=== PATIENT | female | born 1955 | race Caucasian/White ===

== ENCOUNTER 2017-05-02 04:34 | Inpatient (IN) | payer OTHER ==
[~2017-05-02] VITALS: Ht 162.6 cm; Wt 88.5 kg
[2017-05-02] VITALS (9 sets, daily range): BP systolic 100–113; BP diastolic 56–71; PULSE 40–51; TEMP 36.4–36.7; O2SAT 96–100; Ht 162.6 cm; Wt 88.5 kg
[~2017-05-02 04:34] MED LIST: ALBUAER19 INH; EPP3/2 IM; ESTR0.5T3 PO; TRAM-10 PO
[2017-05-02] MEDS ORDERED: SODIUM CHLORIDE 0.9% 1000ML 1,000 ML IV STA (04:52)
[2017-05-02] MEDS ORDERED: CHOL1CHW10 PO ×2 (05:01)
[2017-05-02] MEDS ORDERED: ASPI81TA28 PO ×2 (05:01)
[2017-05-02] MEDS ORDERED: MULT-1092 PO ×2 (05:01)
[2017-05-02] MEDS ORDERED: POTA99TA PO ×2 (05:01)
[2017-05-02] MEDS ORDERED: LISI-461 PO ×2 (05:01)
[2017-05-02] MEDS ORDERED: VNTHFA/IN INH ×2 (05:01)
[2017-05-02] MEDS ORDERED: HYDR25TA4 PO ×2 (05:01)
[2017-05-02 05:11] LABS: BASO % 0.2 %; BASO ABS # 0.02 K/uL (0-0.2); EOS % 1.3 %; EOS ABS # 0.13 K/uL (0-0.5); HEMATOCRIT 39.5 % (37-47); HEMOGLOBIN 13.2 g/dL (12.0-16.0); IG# 0.02 K/uL (0.00-0.02); LYMPH % 21.3 %; LYMPH ABS # 2.18 K/uL (1.2-3.4); MEAN CELL VOLUME 88.8 fL (80-100); MEAN CORPUSCULAR HEMOGLOBIN 29.7 pg (25-34); MEAN CORPUSCULAR HGB CONC 33.4 g/dl (32-36); MONO % 7.1 %; MONO ABS # 0.73 K/uL (0.11-0.59); NEUT % 69.9 %; NEUT ABS # 7.16 K/uL (1.4-6.5); PLATELET COUNT 181 K/uL (130-400); RED CELL DISTRIBUTION WIDTH CV 14.4 % (11.5-14.5); RED CELL DISTRIBUTION WIDTH SD 47.5 fL (36.4-46.3); WHITE BLOOD COUNT 10.24 K/uL (4.8-10.8)
[2017-05-02 05:22] LABS: INR 0.9 (0.9-1.1)
[2017-05-02 05:29] LABS: ALBUMIN 3.8 gm/dl (3.4-5.0); CREATININE 0.74 mg/dl (0.60-1.20); POTASSIUM 3.5 mmol/L (3.5-5.1)
[2017-05-02 05:32] LABS: TOTAL PROTEIN 7.4 gm/dl (6.4-8.2)
--- NOTE | 2017-05-02 05:47 | EMERGENCY ROOM VISIT NOTE ---
History Report prepared by Anupam: Irwin Mejia Under the Supervision of: Dr. Zoë Mckinley D.O. First contact with patient: 04:37 Chief Complaint: ABDOMINAL PAIN Stated Complaint: ABDOMINAL PAIN History of Present Illness The patient is a 61 year old female who presents to the Emergency Room by EMS with complaints of RLQ abdominal pain beginning two days ago. She states that her symptoms began with pain and hot flashes while she was driving. Her pain was initially intermittent, but has become constant recently. The patient's pain wraps around to her back. She also complains of chills. She denies any diarrhea, cough, constipation, urinary symptoms, nausea, or fevers. The patient has been able to pass gas. She has a history of complete hysterectomy, gastric bypass, GI ulcers and GERD. She notes she has a history of anxiety attacks. The patient denies recent medication changes, or travel. Source of History: patient Onset: Two days ago Position: abdomen (RLQ) Timing: constant (now), intermittent (initially) Associated Symptoms: + chills, + back pain, No fevers, No cough, No nausea, No diarrhea, No urinary symptoms Note: The patient denies constipation. Review of Systems See HPI for pertinent positives & negatives. A total of 10 systems reviewed and were otherwise negative. Past Medical & Surgical Medical Problems: (1) Asthma (2) Bronchitis (3) Diabetes mellitus, type II (4) GERD (gastroesophageal reflux disease) (5) Hypertension (6) Pneumonia Surgical Problems: (1) H/O gastric bypass (2) S/P complete hysterectomy (3) S/P hysterectomy (4) Status post bilateral knee replacements Social History Problems: (1) Emphysema lung Family History Cancer Diabetes mellitus Heart disease Hypertension Social History Smoking Status: Never Smoker Drug Use: none Marital Status: single Housing Status: lives with friends Occupation Status: employed Current/Historical Medications Scheduled Aspirin (Aspirin Ec), 81 MG PO QAM Cholecalciferol (Vitamin D3), 500 MG PO DAILY Ciprofloxacin Hcl (Cipro), 500 MG PO BID Estradiol (Estradiol), 0.5 MG PO QAM Hydrochlorothiazide (Hctz), 25 MG PO QAM Lisinopril (Lisinopril), 10 MG PO QAM Multiple Vitamins W/ Minerals (Centrum Silver 50+Women), 1 TAB PO DAILY Omeprazole (Prilosec), 40 MG PO QAM Potassium (Potassium), Unknown Dose PO DAILY Scheduled PRN Albuterol Hfa (Ventolin Hfa), 2 PUFFS INH QID PRN for Shortness of Breath Epinephrine (Epipen), 0.3 MG IM UD PRN for Allergic Reaction Allergies Coded Allergies: BEE STING (Verified Allergy, Severe, ANAPHYLAXIS, 05/04/17) HAS EPIPEN TO USE IF NEEDED Penicillins (Verified Allergy, Severe, THROAT SWELLS, 05/04/17) Morphine (Verified Allergy, Mild, PO ONLY (IV OKAY, PER PATIENT), 05/04/17) PER PT, THROAT SWELLS WITH PO MORPHINE, BUT SHE IS OKAY WITH IV MORPHINE Physical Exam Vital Signs Date Time Temp Pulse Resp B/P (MAP) Pulse Ox O2 Delivery O2 Flow Rate FiO2 05/02/17 08:30 97 Room Air 05/02/17 07:51 43 05/02/17 07:40 48 16 125/68 97 05/02/17 06:36 48 20 117/56 96 Room Air 05/02/17 05:16 78 20 111/57 97 Room Air 05/02/17 04:36 36.6 67 22 160/62 93 Room Air Physical Exam GENERAL: alert, well appearing, well nourished, no distress, non-toxic EYE EXAM: normal conjunctiva, PERRL and EOM's grossly intact OROPHARYNX: no exudate, no erythema, lips, buccal mucosa, and tongue normal and mucous membranes are moist NECK: supple, no nuchal rigidity, no adenopathy, non-tender LUNGS: Clear to auscultation. Normal chest wall mechanics HEART: no murmurs, S1 normal and S2 normal ABDOMEN: abdomen soft, normo-active bowel sounds, no masses, no rebound or guarding. RLQ tenderness to palpation. BACK: Back is symmetrical on inspection and there is no deformity, no midline tenderness, no CVA tenderness. SKIN: no rashes and no bruising UPPER EXTREMITIES: upper extremities are grossly normal. LOWER EXTREMITIES: No pitting edema. NEURO EXAM: Normal sensorium, cranial nerves II-XII grossly intact, normal speech, no gross weakness of arms, no gross weakness of legs. Medical Decision & Procedures ER Provider Diagnostic Interpretation: CT OF THE ABDOMEN AND PELVIS WITH CONTRAST CLINICAL HISTORY: Right lower quadrant abdominal pain. COMPARISON STUDY: None. TECHNIQUE: Following IV administration of 92 mL of Optiray-320, axial images of the abdomen and pelvis were obtained from the lung bases to the proximal femurs. Images were reviewed in the axial, sagittal, and coronal planes. IV contrast was administered without complication. A dose lowering technique was utilized adhering to the principles of ALARA. Oral contrast was administered. CT DOSE: 686.94 mGy.cm FINDINGS: A 1 cm x 0.9 cm right ureteropelvic junction calculus results in moderate right hydronephrosis with moderate perinephric infiltration. The right nephrogram is delayed due to the obstruction. No additional ureteral calculi are identified. The liver, spleen, adrenal glands and pancreas are unremarkable. There is no biliary or pancreatic ductal dilatation. The gallbladder is mildly distended without pericholecystic infiltration. The patient is status post gastric bypass. There is no evidence for a bowel obstruction. There is no lymphadenopathy. The appendix is not visualized but there is no right lower quadrant measuring. No suspicious osseous lesions are present. There is moderate atherosclerotic plaque. IMPRESSION: 10 mm x 9 mm right ureteropelvic junction calculus which results in moderate right hydronephrosis with perinephric infiltration. Delayed right nephrogram due to the obstruction. Electronically signed by: Ever Douglas M.D. 05/02/2017 7:52 AM Dictated Date/Time: 05/02/2017 7:37 AM Laboratory Results Test 05/02/17 04:15 05/02/17 04:40 05/02/17 05:07 Immature Granulocyte % (Auto) 0.2 % White Blood Count 10.24 K/uL (4.8-10.8) Red Blood Count 4.45 M/uL (4.2-5.4) Hemoglobin 13.2 g/dL (12.0-16.0) Hematocrit 39.5 % (37-47) Mean Corpuscular Volume 88.8 fL (80-100) Mean Corpuscular Hemoglobin 29.7 pg (25-34) Mean Corpuscular Hemoglobin Concent 33.4 g/dl (32-36) Platelet Count 181 K/uL (130-400) Mean Platelet Volume 13.0 fL (7.4-10.4) Neutrophils (%) (Auto) 69.9 % Lymphocytes (%) (Auto) 21.3 % Monocytes (%) (Auto) 7.1 % Eosinophils (%) (Auto) 1.3 % Basophils (%) (Auto) 0.2 % Neutrophils # (Auto) 7.16 K/uL (1.4-6.5) Lymphocytes # (Auto) 2.18 K/uL (1.2-3.4) Monocytes # (Auto) 0.73 K/uL (0.11-0.59) Eosinophils # (Auto) 0.13 K/uL (0-0.5) Basophils # (Auto) 0.02 K/uL (0-0.2) Immature Granulocyte # (Auto) 0.02 K/uL (0.00-0.02) Total Bilirubin 0.4 mg/dl (0.2-1) Aspartate Amino Transf (AST/SGOT) 17 U/L (15-37) Alanine Aminotransferase (ALT/SGPT) 25 U/L (12-78) Alkaline Phosphatase 71 U/L (45-117) Total Protein 7.4 gm/dl (6.4-8.2) Albumin 3.8 gm/dl (3.4-5.0) Globulin 3.6 gm/dl (2.5-4.0) Albumin/Globulin Ratio 1.1 (0.9-2) Lipase 192 U/L (73-393) Urine Color DK YELLOW Urine Appearance CLOUDY (CLEAR) Urine pH 5.0 (4.5-7.5) Urine Specific [place] 1.030 (1.000-1.030) Urine Protein 1+ (NEG) Urine Glucose (UA) NEG (NEG) Urine Ketones TRACE (NEG) Urine Occult Blood 3+ (NEG) Urine Nitrite NEG (NEG) Urine Bilirubin NEG (NEG) Urine Urobilinogen NEG (NEG) Urine Leukocyte Esterase TRACE (NEG) Urine WBC (Auto) 1-5 /hpf (0-5) Urine RBC (Auto) >30 /hpf (0-4) Urine Hyaline Casts (Auto) 1-5 /lpf (0-5) Urine Epithelial Cells (Auto) >30 /lpf (0-5) Urine Bacteria (Auto) 1+ (NEG) Urine Crystals CALCIUM OXALATE (NONE Lactic Acid Level 1.1 mmol/L (0.4-2.0) Date/Time Source Procedure Growth Status 05/02/17 04:40 Urine , Clean Catch Urine Culture - Final Escherichia Coli Lactobacillus Species Complete Laboratory results per my review. Medications Administered Medications (Trade) Dose Ordered Sig/Gerald Route Start Time Stop Time Status Last Admin Dose Admin Sodium Chloride 1,000 ml @ 125 mls/hr Q8H STAT IV 05/02/17 04:52 05/02/17 10:26 DC 05/02/17 04:52 125 MLS/HR Acetaminophen 100 ml @ 400 mls/hr NOW STAT IV 05/02/17 05:58 05/02/17 06:12 DC 05/02/17 06:07 400 MLS/HR ECG Indication: abdominal pain Rate (beats per minute): 49 Rhythm: sinus bradycardia Findings: no acute ischemic change, other (Normal axis. Normal intervals. ) ED Course 0445: The patient was evaluated in room A3. A complete history and physical exam was performed. 0755: Patient states no current pain at this time. Updated on all results. 0801: Pt updated on results. Urology paged. Medical Decision Differential diagnosis: Etiologies such as appendicitis, diverticulitis, PUD, biliary pathology, UTI, pancreatitis, obstruction, mesenteric ischemia, aortic pathology, infections, inflammatory bowel disease, renal colic, as well as others were entertained. Patient well-appearing here despite findings on CT. No evidence of acute renal dysfunction, no evidence of bacteremia/sepsis, no evidence of pyelonephritis. Patient will be admitted for additional pain control and urology evaluation. Patient aware of all results and was agreeable with plan. Medication Reconcilliation Current Medication List: was personally reviewed by me Blood Pressure Screening Patient's blood pressure: Normal blood pressure Blood pressure disposition: Did not require urgent referral Consults Time Called: 0800 Consulting Physician: Sonny villagomez Returned Call: 0815 Discussed with Nila Neff, will evaluate. Awaiting call back from urology. Additional Consults: Time Called: 0805 Consulted Physician: Dr. Russell Returned Call: 0815 Additional Comments: Discussed case. Advised medicine should admit and he will see in consult. No additional orders. Impression Primary Impression: Ureterolithiasis Additional Impressions: Hematuria Abdominal pain Scribe Attestation The scribe's documentation has been prepared under my direction and personally reviewed by me in its entirety. I confirm that the note above accurately reflects all work, treatment, procedures, and medical decision making performed by me. Departure Information Prescriptions Ciprofloxacin Hcl (CIPRO) 500 Mg Tab 500 MG PO BID for 3 Days, #6 TAB Prov: Chandler Medina MD 05/03/17 Referrals Warern Flor D.O. (PCP) Patient Instructions [facility] Problem Qualifiers Additional Impressions: Hematuria Hematuria type: unspecified type Qualified Codes: R31.9 - Hematuria, unspecified Abdominal pain Abdominal location: right lower quadrant Qualified Codes: R10.31 - Right lower quadrant pain
[2017-05-02] MEDS ORDERED: ACETAMINOPHEN IV 100 ML IV STA (05:58)
[2017-05-02] MEDS ORDERED: OPTIRAY 320 IV PRN (06:30)
--- NOTE | 2017-05-02 07:54 | DIAGNOSTIC IMAGING REPORT ---
CT OF THE ABDOMEN AND PELVIS WITH CONTRAST CLINICAL HISTORY: Right lower quadrant abdominal pain. COMPARISON STUDY: None. TECHNIQUE: Following IV administration of 92 mL of Optiray-320, axial images of the abdomen and pelvis were obtained from the lung bases to the proximal femurs. Images were reviewed in the axial, sagittal, and coronal planes. IV contrast was administered without complication. A dose lowering technique was utilized adhering to the principles of ALARA. Oral contrast was administered. CT DOSE: 686.94 mGy.cm FINDINGS: A 1 cm x 0.9 cm right ureteropelvic junction calculus results in moderate right hydronephrosis with moderate perinephric infiltration. The right nephrogram is delayed due to the obstruction. No additional ureteral calculi are identified. The liver, spleen, adrenal glands and pancreas are unremarkable. There is no biliary or pancreatic ductal dilatation. The gallbladder is mildly distended without pericholecystic infiltration. The patient is status post gastric bypass. There is no evidence for a bowel obstruction. There is no lymphadenopathy. The appendix is not visualized but there is no right lower quadrant measuring. No suspicious osseous lesions are present. There is moderate atherosclerotic plaque. IMPRESSION: 10 mm x 9 mm right ureteropelvic junction calculus which results in moderate right hydronephrosis with perinephric infiltration. Delayed right nephrogram due to the obstruction. Electronically signed by: Ever Douglas M.D. 05/02/2017 7:52 AM Dictated Date/Time: 05/02/2017 7:37 AM
[2017-05-02] MEDS ORDERED: ONDANSETRON INJ 2 MG/ML 2 ML VIAL IV PRN ×2 (08:30→09:15)
[2017-05-02] MEDS ORDERED: HYDROmorphone INJ 1 MG/ML SYR IV PRN (08:30)
--- NOTE | 2017-05-02 08:30 | NUR ---
A/ID: 61 year old female in ED. c/o abdominal pain. CT abdomen report: 10 mm x 9 mm right ureteropelvic junction calculus. Possible admission/observation. Admission Assessment done. Code Word/Fall Agreement reviewed with patient and completed. Continued care in ED by MIGUE Palmer.
[2017-05-02] MEDS ORDERED: HYDROmorphone INJ 0.5 MG/0.5 ML SYR IV PRN (09:15)
[2017-05-02] MEDS ORDERED: ACETAMINOPHEN IV 1,000 MG in EMPTY BAG 0 ML IV PRN (09:15)
[2017-05-02] MEDS ORDERED: ACETAMINOPHEN IV 1000MG/100ML IV PRN (09:30)
--- NOTE | 2017-05-02 09:32 | History and Physical ---
History & Physical Date & Time of Service: May 02, 2017 at 09:18 Chief Complaint: Abdominal Pain Primary Care Physician: Warren Flor D.O. History of Present Illness Source: patient, hospital records This is a 61yo F with a PMH of HTN, GERD, asthma and h/o gastric bypass who presents with worsening abdominal pain x 2 days. Patient was in normal state of health on Monday until she experienced sudden sharp RLQ pain with associated subjective fever and chills. Pain continued the next day but did not worsen until last night around midnight, when it became a constant, 10/10 pinching pain in her RLQ with radiation to her right flank. Associated with nausea and dark urine with a strong odor. Denies history of kidney stones. Is urinating a usual amount. Was brought to ED via EMS for further evaluation. Denies fever, chills, lightheadedness, chest pain, SOB, vomiting, dysuria, hematuria, diarrhea or constipation. Was given IV tylenol and dilaudid in ED with complete pain relief. Past Medical/Surgical History Medical Problems: (1) Asthma Status: Chronic (2) Bronchitis Status: Resolved (3) Diabetes mellitus, type II Status: Chronic (4) GERD (gastroesophageal reflux disease) Status: Chronic (5) Hypertension Status: Chronic (6) Pneumonia Status: Resolved Surgical Problems: (1) H/O gastric bypass Status: Resolved (2) S/P complete hysterectomy Status: Resolved (3) S/P hysterectomy Status: Resolved (4) Status post bilateral knee replacements Status: Resolved Social History Problems: (1) Emphysema lung Status: Chronic Family History Cancer Diabetes mellitus Heart disease Hypertension Social History Smoking Status: Former Smoker Alcohol Use: none Drug Use: none Marital Status: single Housing status: lives with roommate Occupational Status: employed Immunizations History of Influenza Vaccine: Yes Influenza Vaccine Date: Jul 05, 2008 History of Tetanus Vaccine?: Yes History of Pneumococcal: Yes History of Hepatitis B Vaccine: Yes Multi-Drug Resistant Organisms History of MDRO: No Allergies Coded Allergies: BEE STING (Verified Allergy, Severe, ANAPHYLAXIS, 05/02/17) HAS EPIPEN TO USE IF NEEDED Penicillins (Verified Allergy, Severe, THROAT SWELLS, 05/02/17) Morphine (Verified Allergy, Mild, PO ONLY (IV OKAY, PER PATIENT), 05/02/17) PER PT, THROAT SWELLS WITH PO MORPHINE, BUT SHE IS OKAY WITH IV MORPHINE Home Medications Scheduled Aspirin (Aspirin Ec), 81 MG PO DAILY Cholecalciferol (Vitamin D3), Unknown Dose PO DAILY Estradiol (Estradiol), 0.5 MG PO DAILY Hydrochlorothiazide (Hctz), 25 MG PO DAILY Lisinopril (Lisinopril), 10 MG PO DAILY Multiple Vitamins W/ Minerals (Centrum Silver 50+Women), 1 TAB PO DAILY Omeprazole (Prilosec), 40 MG PO DAILY Potassium (Potassium), Unknown Dose PO DAILY Scheduled PRN Albuterol Hfa (Ventolin Hfa), 2 PUFFS INH QID PRN for Shortness of Breath Epinephrine (Epipen), 0.3 MG IM UD PRN for Allergic Reaction Review of Systems Ten systems reviewed and negative except as noted in the HPI. Physical Exam Vital Signs Date Time Temp Pulse Resp B/P (MAP) Pulse Ox O2 Delivery O2 Flow Rate FiO2 05/02/17 09:13 39 05/02/17 08:30 97 Room Air 05/02/17 07:51 43 05/02/17 07:40 48 16 125/68 97 05/02/17 06:36 48 20 117/56 96 Room Air 05/02/17 05:16 78 20 111/57 97 Room Air 05/02/17 04:36 36.6 67 22 160/62 93 Room Air General Appearance: WD/WN, no apparent distress, + pertinent finding (resting comfortably ) Head: normocephalic, atraumatic Eyes: normal inspection, PERRL, sclerae normal ENT: normal ENT inspection, hearing grossly normal, pharynx normal (dry mucous membranes) Neck: supple, thyroid normal, trachea midline Respiratory/Chest: chest non-tender, lungs clear, normal breath sounds, no respiratory distress, no accessory muscle use Cardiovascular: no murmur, normal peripheral pulses, + bradycardia (chronic ) Abdomen/GI: non tender, soft, no organomegaly Back: + pertinent finding (No CVA tenderness) Extremities/Musculoskelatal: normal inspection, no calf tenderness, no pedal edema Neurologic/Psych: no motor/sensory deficits, alert, normal mood/affect, oriented x 3 Skin: normal color, warm/dry Diagnostics Laboratory Results Results Past 24 Hours Test 05/02/17 04:15 05/02/17 04:40 05/02/17 05:07 Range/Units White Blood Count 10.24 4.8-10.8 K/uL Red Blood Count 4.45 4.2-5.4 M/uL Hemoglobin 13.2 12.0-16.0 g/dL Hematocrit 39.5 37-47 % Mean Corpuscular Volume 88.8 80-100 fL Mean Corpuscular Hemoglobin 29.7 25-34 pg Mean Corpuscular Hemoglobin Concent 33.4 32-36 g/dl Platelet Count 181 130-400 K/uL Mean Platelet Volume 13.0 7.4-10.4 fL Neutrophils (%) (Auto) 69.9 % Lymphocytes (%) (Auto) 21.3 % Monocytes (%) (Auto) 7.1 % Eosinophils (%) (Auto) 1.3 % Basophils (%) (Auto) 0.2 % Neutrophils # (Auto) 7.16 1.4-6.5 K/uL Lymphocytes # (Auto) 2.18 1.2-3.4 K/uL Monocytes # (Auto) 0.73 0.11-0.59 K/uL Eosinophils # (Auto) 0.13 0-0.5 K/uL Basophils # (Auto) 0.02 0-0.2 K/uL RDW Standard Deviation 47.5 36.4-46.3 fL RDW Coefficient of Variation 14.4 11.5-14.5 % Immature Granulocyte % (Auto) 0.2 % Immature Granulocyte # (Auto) 0.02 0.00-0.02 K/uL Prothrombin Time 9.4 9.0-12.0 SECONDS Prothromb Time International Ratio 0.9 0.9-1.1 Sodium Level 140 136-145 mmol/L Potassium Level 3.5 3.5-5.1 mmol/L Chloride Level 106 98-107 mmol/L Carbon Dioxide Level 26 21-32 mmol/L Anion Gap 8.0 3-11 mmol/L Blood Urea Nitrogen 27 7-18 mg/dl Creatinine 0.74 0.60-1.20 mg/dl Est Creatinine Clear Calc Drug Dose 88.2 ml/min Estimated GFR () 102.8 Estimated GFR (Non- 88.7 BUN/Creatinine Ratio 36.9 10-20 Random Glucose 98 70-99 mg/dl Calcium Level 9.0 8.5-10.1 mg/dl Total Bilirubin 0.4 0.2-1 mg/dl Aspartate Amino Transf (AST/SGOT) 17 15-37 U/L Alanine Aminotransferase (ALT/SGPT) 25 12-78 U/L Alkaline Phosphatase 71 45-117 U/L Total Protein 7.4 6.4-8.2 gm/dl Albumin 3.8 3.4-5.0 gm/dl Globulin 3.6 2.5-4.0 gm/dl Albumin/Globulin Ratio 1.1 0.9-2 Lipase 192 73-393 U/L Urine Color DK YELLOW Urine Appearance CLOUDY CLEAR Urine pH 5.0 4.5-7.5 Urine Specific [place] 1.030 1.000-1.030 Urine Protein 1+ NEG Urine Glucose (UA) NEG NEG Urine Ketones TRACE NEG Urine Occult Blood 3+ NEG Urine Nitrite NEG NEG Urine Bilirubin NEG NEG Urine Urobilinogen NEG NEG Urine Leukocyte Esterase TRACE NEG Urine WBC (Auto) 1-5 0-5 /hpf Urine RBC (Auto) >30 0-4 /hpf Urine Hyaline Casts (Auto) 1-5 0-5 /lpf Urine Epithelial Cells (Auto) >30 0-5 /lpf Urine Bacteria (Auto) 1+ NEG Urine Crystals CALCIUM OXALATE NONE PRSENT Lactic Acid Level 1.1 0.4-2.0 mmol/L Microbiology Results 05/02/17 Urine Culture, Received Pending Diagnostic Radiology Abd/pelvis CT: IMPRESSION: 10 mm x 9 mm right ureteropelvic junction calculus which results in moderate right hydronephrosis with perinephric infiltration. Delayed right nephrogram due to the obstruction. EKG Sinus bradycardia with sinus arrhythmia at 49 bpm. Impression Assessment and Plan This is a 61yo F with a PMH of HTN, GERD, asthma and h/o gastric bypass who presents with worsening abdominal pain x 2 days and was found to have a R Ureteropelvic junction stone with moderate hydronephrosis. R Ureteropelvic junction stone with moderate hydronephrosis: -RLQ pain x 2 days with subjective fever, nausea -Afebrile, no leukocytosis -CT abd/pelvis with 10 mm x 9 mm right ureteropelvic junction calculus, moderate right hydronephrosis with perinephric infiltration -UA with presence of blood, trace leuk esterase. Culture pending -Urology consulted for further evaluation, procedure -Keep NPO for now -IV fluids, pain control HTN: -Hold home dose lisinopril while NPO -Monitor BP and add additional agent if needed GERD: -Cont omeprazole H/o gastric bypass: -Unsure of B12 and Vit D doses -Will adjust med rec once patient obtains info Asthma: -Stable -Cont home dose inhalers DVT Ppx: SCDs for now Code status: FULL PCP: [facility] Dispo: Admitted to [facility]. Plan to return home once medically stable. Patient seen in collaboration with Dr. Medina. Please see addendum. Agree with above H and P. Briefly 61F presents with right sided flank pain radiating to groin since last monday biut got worse since last night. Associated with nausea. Had chills. No sob. No chest pain. Currently pain controlled with pain meds. p/e ge not in distress Cvs s1 and s2 heard no murmurs Rs cta b/l no added sounds Abd soft bowel sounds present mild right cva tenderness Records Section Supervisor non focal ext no edema a/p Right renal colic 10mm x 9mm renal stone at right UPJ iv fluids pain control iv antiemetics prn urology consult HTN holding lisinopril iv hydralazine prn will monitor Level of Care Med/Surg Advanced Directives Existing Living Will: No Existing Power of Machine Tool Rebuilder: No Resuscitation Status FULL RESUSCITATION VTE Prophylaxis VTE Risk Assessment Done? Y/N: Yes Risk Level: Moderate Given or contraindicated: SCD's
[2017-05-02] MEDS ORDERED: OMEP40CA41 PO ×2 (09:43)
[2017-05-02] MEDS ORDERED: HydrALAZINE HCL 20 MG/ML VIAL IV. PRN (10:45)
[2017-05-02] MEDS: SODIUM CHLORIDE 0.9% 1000ML 1,000 ML IV SCH ×2 (11:13→20:05)
--- NOTE | 2017-05-02 12:41 | NUR ---
A NOTE: Pt preparing to be transported to OR. Pt requested her (2) cell phones be placed in her red purse. The Red Purse and bag of personal belongings was placed in the cupboard per the pts request. Pts earrings removed at this time and placed in white med cup and placed in cupboard as well as dentures and glasses.
--- NOTE | 2017-05-02 12:46 | NUR ---
A NOTE: OR just called pt transport and requested transport be held at this time. Pt reapplied glasses at this time.
--- NOTE | 2017-05-02 13:28 | Urology Consultation ---
History General Date of Service: May 02, 2017. Primary Care Physician: Warren Flor D.O. Pt seen a urologist before?: No History of Present Illness 61y/o female with 36hrs of right flank pain - mild nausea - no fevers - no hematuria - no stone passage - ~1cm R UPJ stone with hydro and moderate perinephric stranding - identified on CT in the ER - no prior hx of stones - no known family hx of stones - hx of gastric bypass Laboratory Labs were reviewed and are within normal limits unless listed below. Labs are available in the chart and at [facility] Problem List Medical Problems: (1) Abdominal pain Status: Acute (2) Bradycardia Status: Acute (3) Cervical spinal stenosis Status: Acute Social History Problems: (1) Emphysema lung Status: Chronic Past History asthma, GERD, hypertension Pt had a problem w anesthesia?: No Past Surgical History: gastric bypass Family History Cancer Diabetes mellitus Heart disease Hypertension Social History Hx Tobacco Use In Past Year?: No Marital status: single Housing status: lives with roommate Occupation status: employed Immunizations History of Influenza Vaccine: Yes Influenza Vaccine Date: Jul 05, 2008 History of Tetanus Vaccine?: Yes History of Pneumococcal: Yes History of Hepatitis B Vaccine: Yes History of MDRO No Allergies Coded Allergies: BEE STING (Verified Allergy, Severe, ANAPHYLAXIS, 05/02/17) HAS EPIPEN TO USE IF NEEDED Penicillins (Verified Allergy, Severe, THROAT SWELLS, 05/02/17) Morphine (Verified Allergy, Mild, PO ONLY (IV OKAY, PER PATIENT), 05/02/17) PER PT, THROAT SWELLS WITH PO MORPHINE, BUT SHE IS OKAY WITH IV MORPHINE Medications Home Medications: Home Meds and Scripts Medications Dose Route/Sig Max Daily Dose Days Date Category Prilosec (Omeprazole) 40 Mg Cap 40 Mg PO DAILY 05/02/17 Reported Potassium Unknown Strength Tab Unknown Dose PO DAILY 05/02/17 Reported Aspirin Ec (Aspirin) 81 Mg Tab 81 Mg PO DAILY 05/02/17 Reported Hctz (Hydrochlorothiazide) 25 Mg Tab 25 Mg PO DAILY 05/02/17 Reported Lisinopril 10 Mg Tab 10 Mg PO DAILY 05/02/17 Reported Vitamin D3 (Cholecalciferol) Unknown Strength Chw Unknown Dose PO DAILY 05/02/17 Reported Centrum Silver 50+Women (Multiple Vitamins W/ Minerals) 1 Tab Tab 1 Tab PO DAILY 05/02/17 Reported Ventolin Hfa (Albuterol) 200 Puffs/28899 Mcg Aers 2 Puffs INH QID PRN 05/02/17 Reported Estradiol 0.5 Mg Tab 0.5 Mg PO DAILY 08/24/12 Reported Epipen (Epinephrine) 0.3 Mg/0.3 Ml Inj 0.3 Mg IM UD PRN 08/24/12 Reported Inpatient Medications: Current Inpatient Medications Medications (Trade) Dose Ordered Sig/Gerald Route Start Time Stop Time Status Last Admin Dose Admin Ioversol (Optiray 320) 100 ml UD PRN IV 05/02/17 06:30 05/06/17 06:29 Ondansetron HCl (Zofran Inj) 4 mg Q6H PRN IV 05/02/17 08:30 06/01/17 08:29 Acetaminophen (Tylenol Tab) 650 mg Q4H PRN PO 05/02/17 09:15 06/01/17 09:14 Ondansetron HCl (Zofran Inj) 4 mg Q6H PRN IV 05/02/17 09:15 06/01/17 09:14 Sodium Chloride 1,000 ml @ 125 mls/hr Q8H IV 05/02/17 09:15 06/01/17 09:14 05/02/17 11:13 125 MLS/HR Hydromorphone HCl (Dilaudid Inj) 0.5 mg Q4 PRN IV 05/02/17 09:15 05/16/17 09:14 Acetaminophen 100 ml @ 400 mls/hr Q8H PRN IV 05/02/17 09:30 06/01/17 09:29 Hydralazine HCl (HydrALAZINE INJ) 5 mg Q6 PRN IV. 05/02/17 10:45 06/01/17 10:44 Review of Systems Review of Systems Constitutional: No see HPI, No fever, No chills, No frequent headaches, No weight loss, No problem reported Eyes: No see HPI, No blurred vision, No double vision, No eye pain, No loss of night vision, No problem reported Neurological: No see HPI, No dizzy, No passing out, No numbness/tingling, No seizures, No problem reported Endocrine: No see HPI, No excessive thirst, No too hot, No too cold, No tired/ sluggish, No problem reported Gastrointestinal: + abdominal pain, + nausea Cardiovascular: No see HPI, No heart murmur, No chest pain, No angina, No irregular heartbeat, No palpitations, No swelling ankles/feet, No problem reported Respiratory: No see HPI, No shortness of breath, No wheezing, No coughing up blood, No chronic cough, No problem reported Skin: No see HPI, No rash, No boils, No dry skin, No problem reported Musculoskeletal: No see HPI, No joint pain, No neck pain, No back pain, No arthritis, No problem reported Blood / Lymphatic: No see HPI, No bleed easily, No bruise easily, No swollen glands, No problem reported Psychologic / Mental: No see HPI, No nervous, No trouble remembering, No difficulty sleeping, No problem reported Female : + kidney stones, + problem reported All Other Systems: Reviewed and Negative Physical Exam Vital Signs: Vital Signs Past 12 Hours Date Time Temp Pulse Resp B/P (MAP) Pulse Ox O2 Delivery O2 Flow Rate FiO2 05/02/17 09:50 36.7 46 18 107/62 (77) 97 Room Air 05/02/17 09:45 Room Air 05/02/17 09:28 46 18 103/63 100 05/02/17 09:13 39 05/02/17 08:30 97 Room Air 05/02/17 07:51 43 05/02/17 07:40 48 16 125/68 97 05/02/17 06:36 48 20 117/56 96 Room Air 05/02/17 05:16 78 20 111/57 97 Room Air 05/02/17 04:36 36.6 67 22 160/62 93 Room Air Physical Exam: General Appearance: WD/WN, no apparent distress Eyes: bilateral eyes normal inspection ENT: hearing grossly normal Neck: no adenopathy Respiratory/Chest: no respiratory distress, no accessory muscle use Cardiovascular: regular rate, rhythm Gastrointestinal: Abdomen: normal abdomen Bladder: normal bladder Renal: normal renal Extremities: normal inspection Neurologic/Psychiatric: alert, normal mood/affect, oriented x 3 Skin: normal color, warm/dry Lymphatic: no adenopathy Assessment & Plan Assessment & Plan R UPJ stone - reviewed her imaging findings and overall condition - plan for cystoscopy, right ureteral stent placement today - if well tolerated, consider ESWL as an out pt as soon as Nelson
[2017-05-02] MEDS ORDERED: FENTANYL CITRATE INJ 50 MCG/1 ML 2 ML VIAL ONE (13:38)
[2017-05-02] MEDS ORDERED: MIDAZOLAM HCL 1 MG/ML 2ML VIAL ONE (13:38)
[2017-05-02] MEDS ORDERED: LACTULOSE SYRUP 30 GM/45 ML UDP PO ONE (14:00)
[2017-05-02] MEDS ORDERED: LIDOCAINE HCL 2% 2 ML VIAL (20MG/ML) ONE (14:05)
[2017-05-02] MEDS ORDERED: PROPOFOL IV EMULSION 10 MG/ML 20 ML VIAL IV ONE ×2 (14:05→14:47)
[2017-05-02] MEDS ORDERED: EpHEDrine SULFATE 50MG/5ML SYR ONE (14:53)
[2017-05-02] MEDS ORDERED: CIPROFLOXACIN 400MG / 200ML D5W ONE (14:55)
--- NOTE | 2017-05-02 15:07 | [facility] Operative Report ---
Operative Report Operative Date May 02, 2017. Pre-Operative Diagnosis hydronephrosis; right ureteral stone Post-Operative Diagnosis hydronephrosis; right ureteral stone Procedure(s) Performed cystoscopy; right ureteral stent ([id number]) Surgeon Rochelle Heard MD Hyperbaric Nurse Surgeon(s) none Estimated Blood Loss 0cc Findings Large, radio-opaque R UPJ stone Specimens none Drains [id number] Anesthesia MAC Complication(s) None Disposition Recovery Room / PACU (stable) Indications Symptomatic right ureteral stone Description of Procedure The patient was identified in the preoperative holding area, appropriate informed consent reviewed and completed and she was transported to the operating suite. She received appropriate sedation as well as ciprofloxacin upon arrival. After sterile prep and drape, I passed a 22 Trin[place] cystoscope into the bladder. Full inspection of the bladder was carried out. 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 Right ureteral orifice was subsequently cannulated with a 5 Trinidadian open-ended catheter and a sensor wire. The wire was advanced the kidney without difficulty. Of note, a child welfare worker film was taken prior to intubating the ureter, and I was uncertain I could see the stone, however, she has significant contrast burden remaining in her colon. After passing the wire, the the stone proved to to be very radio opaque, as the wire allowed this to no longer be superimposed with the colon and confirmed that the stone itself was visible. After passing the wire, I placed a 6 Trinidadian by 24 cm double-J ureteral stent without difficulty. There was a good curl in the kidney as well as the bladder. The bladder was decompressed and the case concluded. There were no complications I attest to the content of the Intraoperative Record and any orders documented therein. Any exceptions are noted below.
--- NOTE | 2017-05-02 15:19 | DIAGNOSTIC IMAGING REPORT ---
RETROGRADE INCLUDES KUB CLINICAL HISTORY: RT CYSTO nephrocalcinosis TECHNIQUE: Image intensifier COMPARISON STUDY: CT 05/02/2017 FINDINGS: 2 image intensifier views of the right kidney show placement of a right-sided guidewire followed by ureteral stent. These images were utilized intraoperatively for guidance purposes. IMPRESSION: 2 image intensifier views of the upper aspect of the right urinary tract. These images were used for intraoperative surgical planning purposes. The above report was generated using voice recognition software. It may contain grammatical, syntax or spelling errors. Electronically signed by: Romero Holland M.D. 05/02/2017 3:17 PM Dictated Date/Time: 05/02/2017 3:16 PM
[2017-05-02] MEDS ORDERED: EpINEphrine INJ 1MG/ML AMP 1 MG/ML AMP IM PRN (15:30)
[2017-05-02] MEDS ORDERED: ALBUTEROL HFA 8 GM INHALER INH PRN (15:30)
--- NOTE | 2017-05-02 15:50 | Anesthesiology Progress Note ---
Anesthesia Post Op Note Date & Time May 02, 2017 at 15:50 Vital Signs Pain Intensity: 0 Vital Signs Past 12 Hours Date Time Temp Pulse Resp B/P (MAP) Pulse Ox O2 Delivery O2 Flow Rate FiO2 05/02/17 15:37 49 15 05/02/17 15:37 47 15 94 05/02/17 15:36 112/52 05/02/17 15:32 45 12 05/02/17 15:32 47 12 94 05/02/17 15:31 108/56 05/02/17 15:27 50 15 94 05/02/17 15:27 48 15 05/02/17 15:26 101/51 05/02/17 15:22 47 17 96 05/02/17 15:22 50 17 05/02/17 15:21 46 18 92/52 95 05/02/17 15:21 51 18 05/02/17 15:16 54 15 05/02/17 15:16 54 15 90/52 100 05/02/17 15:15 102/52 05/02/17 15:12 92/40 05/02/17 15:11 60 15 05/02/17 15:11 59 15 100 05/02/17 15:11 36.4 50 16 92/40 100 Oxymask 10 05/02/17 09:50 36.7 46 18 107/62 (77) 97 Room Air 05/02/17 09:45 Room Air 05/02/17 09:28 46 18 103/63 100 05/02/17 09:13 39 05/02/17 08:30 97 Room Air 05/02/17 07:51 43 05/02/17 07:40 48 16 125/68 97 05/02/17 06:36 48 20 117/56 96 Room Air 05/02/17 05:16 78 20 111/57 97 Room Air 05/02/17 04:36 36.6 67 22 160/62 93 Room Air Notes Mental Status: alert / awake / arousable, participated in evaluation Pt Amnestic to Procedure: Yes Nausea / Vomiting: adequately controlled Pain: adequately controlled Airway Patency, RR, SpO2: stable & adequate BP & HR: stable & adequate Hydration State: stable & adequate Anesthetic Complications: no major complications apparent
[2017-05-02] MEDS: ACETAMINOPHEN 325 MG TAB PO PRN (23:11)
--- NOTE | 2017-05-03 00:09 | NUR ---
ID Note: patient resting in bed. alert and oriented x4. c/o headache and groin discomfort 06/10, see emar. IVF infusing as ordered. lungs clear on RA, denies cough, shortness of breath or chest pain. positive bowel sounds, denies flatus, nausea/vomiting. tolerating regular diet. pulses palpable, denies numbness/tingling. oob independently to void. discharge uncertain. call rogers in reach. will continue to monitor.
[2017-05-03] MEDS ORDERED: NURSING DECISION MEDICATION ORDER SCH ×2 (01:15→10:00)
[2017-05-03 02:52] VITALS: BP 102/63; PULSE 50; TEMP 36.4; O2SAT 97
[2017-05-03] MEDS: SODIUM CHLORIDE 0.9% 1000ML 1,000 ML IV SCH ×2 (03:49→11:38)
[2017-05-03] MEDS: ACETAMINOPHEN 325 MG TAB PO PRN ×2 (03:51→07:52)
[2017-05-03 07:08] LABS: HEMATOCRIT 36.3 % (37-47); HEMOGLOBIN 11.9 g/dL (12.0-16.0); MEAN CELL VOLUME 91.4 fL (80-100); MEAN CORPUSCULAR HGB CONC 32.8 g/dl (32-36); MEAN PLATELET VOLUME 12.1 fL (7.4-10.4); PLATELET COUNT 149 K/uL (130-400); RED CELL DISTRIBUTION WIDTH CV 14.9 % (11.5-14.5); RED CELL DISTRIBUTION WIDTH SD 49.9 fL (36.4-46.3); WHITE BLOOD COUNT 6.61 K/uL (4.8-10.8)
[2017-05-03 07:31] VITALS: BP 98/52; PULSE 43; TEMP 34.3; O2SAT 97
[2017-05-03 07:37] VITALS: O2SAT 97
[2017-05-03 07:44] LABS: CALCIUM 8.1 mg/dl (8.5-10.1); CREATININE 0.57 mg/dl (0.60-1.20)
--- NOTE | 2017-05-03 08:22 | Progress Note ---
Subjective Date of Service: May 03, 2017. Subjective Pt evaluation today including: conversation w/ patient, physical exam, chart review, lab review Voiding: no voiding problems stent placed yesterday - minimal stent discomfort, but no renal colic like pain - labs improved - culture with 30,000CFU of gram neg bacilli 05/03/17 06:50 05/03/17 06:50 Test 05/02/17 15:40 05/03/17 06:50 Bedside Glucose 106 mg/dl (70-90) Red Blood Count 3.97 M/uL (4.2-5.4) Mean Corpuscular Volume 91.4 fL (80-100) Mean Corpuscular Hemoglobin 30.0 pg (25-34) Mean Corpuscular Hemoglobin Concent 32.8 g/dl (32-36) RDW Standard Deviation 49.9 fL (36.4-46.3) RDW Coefficient of Variation 14.9 % (11.5-14.5) Mean Platelet Volume 12.1 fL (7.4-10.4) Prothrombin Time 10.0 SECONDS (9.0-12.0) Prothromb Time International Ratio 1.0 (0.9-1.1) Anion Gap 5.0 mmol/L (3-11) Est Creatinine Clear Calc Drug Dose 114.5 ml/min Estimated GFR () 117.6 Estimated GFR (Non- 101.5 BUN/Creatinine Ratio 27.5 (10-20) Calcium Level 8.1 mg/dl (8.5-10.1) Problem List Medical Problems: (1) Abdominal pain Status: Acute (2) Bradycardia Status: Acute (3) Cervical spinal stenosis Status: Acute Social History Problems: (1) Emphysema lung Status: Chronic Review of Systems Constitutional: No see HPI, No fever, No chills, No sweats, No weight loss, No weakness, No fatigue, No problem reported Abdomen: No see HPI, No pain, No nausea, No vomiting, No diarrhea, No constipation, No GI bleeding, No problem reported Female : + dysuria, No hematuria Objective Vital Signs Date Time Temp Pulse Resp B/P (MAP) Pulse Ox O2 Delivery O2 Flow Rate FiO2 05/03/17 07:40 Room Air 05/03/17 07:37 97 Room Air 05/03/17 07:31 34.3 43 18 98/52 (67) 97 Room Air 05/03/17 02:52 36.4 50 14 102/63 (76) 97 Room Air 05/02/17 23:10 Room Air 05/02/17 23:01 36.4 51 14 100/62 (75) 96 Room Air 05/02/17 18:55 36.6 50 16 106/56 (73) 99 Room Air 05/02/17 18:07 36.5 48 16 113/65 (81) 99 Room Air 05/02/17 18:03 40 16 113/65 (81) 100 Room Air 05/02/17 16:55 36.5 40 16 110/71 (84) 100 Room Air 05/02/17 16:32 36.4 45 16 104/64 (77) 100 Room Air 05/02/17 15:55 36.5 42 16 100/63 (75) 97 Room Air Oxymask 05/02/17 15:55 Room Air 05/02/17 15:55 Room Air Oxymask 05/02/17 15:37 49 15 05/02/17 15:37 47 15 94 05/02/17 15:36 112/52 05/02/17 15:32 45 12 05/02/17 15:32 47 12 94 05/02/17 15:31 108/56 05/02/17 15:27 50 15 94 05/02/17 15:27 48 15 05/02/17 15:26 101/51 05/02/17 15:22 47 17 96 05/02/17 15:22 50 17 05/02/17 15:21 46 18 92/52 95 05/02/17 15:21 51 18 05/02/17 15:16 54 15 05/02/17 15:16 54 15 90/52 100 05/02/17 15:15 102/52 05/02/17 15:12 92/40 05/02/17 15:11 60 15 05/02/17 15:11 59 15 100 05/02/17 15:11 36.4 50 16 92/40 100 Oxymask 10 05/02/17 09:50 36.7 46 18 107/62 (77) 97 Room Air 05/02/17 09:45 Room Air 05/02/17 09:28 46 18 103/63 100 05/02/17 09:13 39 05/02/17 08:30 97 Room Air Physical Exam General Appearance: no apparent distress Eyes: normal inspection Respiratory/Chest: no respiratory distress, no accessory muscle use Cardiovascular: no edema Abdomen: non tender, soft Extremities: no pedal edema, no calf tenderness Neurologic/Psychiatric: alert, normal mood/affect, oriented x 3 Laboratory Results Last 24 Hours Test 05/02/17 15:40 05/03/17 06:50 Bedside Glucose 106 mg/dl White Blood Count 6.61 K/uL Red Blood Count 3.97 M/uL Hemoglobin 11.9 g/dL Hematocrit 36.3 % Mean Corpuscular Volume 91.4 fL Mean Corpuscular Hemoglobin 30.0 pg Mean Corpuscular Hemoglobin Concent 32.8 g/dl RDW Standard Deviation 49.9 fL RDW Coefficient of Variation 14.9 % Platelet Count 149 K/uL Mean Platelet Volume 12.1 fL Prothrombin Time 10.0 SECONDS Prothromb Time International Ratio 1.0 Sodium Level 140 mmol/L Potassium Level 4.0 mmol/L Chloride Level 108 mmol/L Carbon Dioxide Level 27 mmol/L Anion Gap 5.0 mmol/L Blood Urea Nitrogen 16 mg/dl Creatinine 0.57 mg/dl Est Creatinine Clear Calc Drug Dose 114.5 ml/min Estimated GFR () 117.6 Estimated GFR (Non- 101.5 BUN/Creatinine Ratio 27.5 Random Glucose 91 mg/dl Calcium Level 8.1 mg/dl Assessment and Plan R UPJ stone s/p stent - cover with oral abx x 3days - no ASA or ibuprofen now - plan for ESWL on Monday - likely d/c home today
--- NOTE | 2017-05-03 08:45 | Anesthesiology Progress Note ---
Anesthesia Post Op Note Date & Time May 03, 2017 at 08:45 Vital Signs Vital Signs Past 12 Hours Date Time Temp Pulse Resp B/P (MAP) Pulse Ox O2 Delivery O2 Flow Rate FiO2 05/03/17 07:40 Room Air 05/03/17 07:37 97 Room Air 05/03/17 07:31 34.3 43 18 98/52 (67) 97 Room Air 05/03/17 02:52 36.4 50 14 102/63 (76) 97 Room Air 05/02/17 23:10 Room Air 05/02/17 23:01 36.4 51 14 100/62 (75) 96 Room Air Notes Mental Status: alert / awake / arousable, participated in evaluation Pt Amnestic to Procedure: Yes Nausea / Vomiting: adequately controlled Pain: adequately controlled Airway Patency, RR, SpO2: stable & adequate BP & HR: stable & adequate Hydration State: stable & adequate Anesthetic Complications: no major complications apparent
[2017-05-03] MEDS ORDERED: PANTOprazole SOD 40 MG TAB PO SCH (09:00)
[2017-05-03] MEDS ORDERED: HYDROCHLOROTHIAZIDE 25 MG TAB PO SCH (09:00)
[2017-05-03] MEDS ORDERED: LISINOPRIL 10 MG TAB PO SCH (09:00)
[2017-05-03] MEDS ORDERED: ASPIRIN 81 MG ECTAB PO SCH (09:00)
[2017-05-03] MEDS ORDERED: ESTRADIOL 1 MG TAB PO SCH (09:00)
[2017-05-03] MEDS ORDERED: CEROVITE ADV FORMULA TAB PO SCH (09:00)
--- NOTE | 2017-05-03 09:30 | NUR ---
A: Was unaware that patient was getting outpatient lithotripsy this monday; gave patient her morning meds, patient reported to this RN about 20 mins after medication administration that the office called her and told her not to take any blood thinners prior to procedure. Checked the progress note that was entered at 0830 saying to "hold blood thinners"; did not look at the progress note prior to administration of meds. Notified Dr. Heard.
--- NOTE | 2017-05-03 10:00 | DIAGNOSTIC IMAGING REPORT ---
CHEST ONE VIEW PORTABLE CLINICAL HISTORY: preop preoperative evaluation COMPARISON STUDY: 08/24/2012 FINDINGS: The bones soft tissues and hemidiaphragms are normal. The cardiomediastinal silhouette is normal. The lungs are clear. The pulmonary vasculature is normal. IMPRESSION: Negative chest. The above report was generated using voice recognition software. It may contain grammatical, syntax or spelling errors. Electronically signed by: Romero Holland M.D. 05/03/2017 9:58 AM Dictated Date/Time: 05/03/2017 9:58 AM
[2017-05-03 10:25] VITALS: BP 98/52; PULSE 43; TEMP 34.3; O2SAT 97
[2017-05-03 12:06] VITALS: BP 99/67; PULSE 43; TEMP 36.7; O2SAT 99
[2017-05-03] MEDS ORDERED: CIPR-255 PO ×2 (13:22)
--- NOTE | 2017-05-03 13:24 | Discharge Instructions ---
Discharge Instructions Date of Service May 03, 2017. Admission Reason for Admission: Ureteropelvic Junction Calculus Discharge Discharge Diagnosis / Problem: RT UPJ stone s/p stent Discharge Goals Goal(s): Decrease discomfort, Improve function Activity Recommendations Activity Limitations: resume your previous activity . Instructions / Follow-Up Instructions / Follow-Up FOLLOWUP WITH FAMILY DOCTOR IN ONE WEEK FOLLOWUP WITH UROLOGY SCHEDULED ON MONDAY FOR LITHOTRIPSY Current Hospital Diet Patient's current hospital diet: Regular Diet Discharge Diet Recommended Diet: Regular Diet Procedures Procedures Performed: cystoscopy; right ureteral stent ([id number]) Pending Studies Studies pending at discharge: no Medical Emergencies . Who to Call and When: Medical Emergencies: If at any time you feel your situation is an emergency, please call 911 immediately. . Non-Emergent Contact Non-Emergency issues call your: Primary Care Provider . . "Provider Documentation" section prepared by Chandler Medina. . VTE Core Measure Inpt VTE Proph given/why not?: SCD's
--- NOTE | 2017-05-03 14:43 | NUR ---
A: Saline lock removed. D/c paperwork reviewed with pt and . Cipro script included. Taken by volunteer via wheelchair.
--- NOTE | 2017-05-03 15:28 | Progress Note ---
Internal Med Progress Note Date of Service: May 03, 2017. Provider Documentation: SUBJECTIVE: sitting on the chair comfortably afebrile no nausea s/p ureteric stent yesterday ok for discharge OBJECTIVE: Vital Signs-as noted below Exam: General-alert and oriented. Not in distress Neck-no neck masses Lungs-cta b/l no wheezing or crackles Heart-S1 and S2 head regular rate and rhythm no murmurs Abdomen-soft bowel sounds present non tender no distension Extremities-no edema no erythema Neuro-alert and awake moves extremities Lab data as noted below. ASSESSMENT & PLAN: This is a 61yo F with a PMH of HTN, GERD, asthma and h/o gastric bypass who presents with worsening abdominal pain x 2 days and was found to have a R Ureteropelvic junction stone with moderate hydronephrosis. R Ureteropelvic junction stone with moderate hydronephrosis: CT abd/pelvis with 10 mm x 9 mm right ureteropelvic junction calculus, moderate right hydronephrosis with perinephric infiltration s/p cystoscopy and stent placement plan for ESWL on Monday by urology urine cx gm negative bacilli- discharged on cipro HTN: stable d/c on home meds. GERD: On omeprazole H/o gastric bypass: f/u with pcp for multivitamins Asthma: Stable on home inhalers discharged home Vital Signs: Date Time Temp Pulse Resp B/P (MAP) Pulse Ox O2 Delivery O2 Flow Rate FiO2 05/03/17 12:06 36.7 43 18 99/67 (78) 99 Room Air 05/03/17 10:25 34.3 43 18 97 Room Air 05/03/17 07:40 Room Air 05/03/17 07:37 97 Room Air 05/03/17 07:31 34.3 43 18 98/52 (67) 97 Room Air 05/03/17 02:52 36.4 50 14 102/63 (76) 97 Room Air 05/02/17 23:10 Room Air 05/02/17 23:01 36.4 51 14 100/62 (75) 96 Room Air 05/02/17 18:55 36.6 50 16 106/56 (73) 99 Room Air 05/02/17 18:07 36.5 48 16 113/65 (81) 99 Room Air 05/02/17 18:03 40 16 113/65 (81) 100 Room Air 05/02/17 16:55 36.5 40 16 110/71 (84) 100 Room Air 05/02/17 16:32 36.4 45 16 104/64 (77) 100 Room Air 05/02/17 15:55 36.5 42 16 100/63 (75) 97 Room Air Oxymask 05/02/17 15:55 Room Air 05/02/17 15:55 Room Air Oxymask 05/02/17 15:37 49 15 05/02/17 15:37 47 15 94 05/02/17 15:36 112/52 05/02/17 15:32 45 12 05/02/17 15:32 47 12 94 05/02/17 15:31 108/56 05/02/17 15:27 50 15 94 05/02/17 15:27 48 15 05/02/17 15:26 101/51 Lab Results: Results Past 24 Hours Test 05/02/17 15:40 05/03/17 06:50 Range/Units Bedside Glucose 106 70-90 mg/dl White Blood Count 6.61 4.8-10.8 K/uL Red Blood Count 3.97 4.2-5.4 M/uL Hemoglobin 11.9 12.0-16.0 g/dL Hematocrit 36.3 37-47 % Mean Corpuscular Volume 91.4 80-100 fL Mean Corpuscular Hemoglobin 30.0 25-34 pg Mean Corpuscular Hemoglobin Concent 32.8 32-36 g/dl RDW Standard Deviation 49.9 36.4-46.3 fL RDW Coefficient of Variation 14.9 11.5-14.5 % Platelet Count 149 130-400 K/uL Mean Platelet Volume 12.1 7.4-10.4 fL Prothrombin Time 10.0 9.0-12.0 SECONDS Prothromb Time International Ratio 1.0 0.9-1.1 Sodium Level 140 136-145 mmol/L Potassium Level 4.0 3.5-5.1 mmol/L Chloride Level 108 98-107 mmol/L Carbon Dioxide Level 27 21-32 mmol/L Anion Gap 5.0 3-11 mmol/L Blood Urea Nitrogen 16 7-18 mg/dl Creatinine 0.57 0.60-1.20 mg/dl Est Creatinine Clear Calc Drug Dose 114.5 ml/min Estimated GFR () 117.6 Estimated GFR (Non- 101.5 BUN/Creatinine Ratio 27.5 10-20 Random Glucose 91 70-99 mg/dl Calcium Level 8.1 8.5-10.1 mg/dl
--- NOTE | 2017-05-03 17:37 | Discharge Summary ---
Discharge Summary Date of Service May 03, 2017. Discharge Summary Admission Date: May 02, 2017 at 09:10 Discharge Date: May 03, 2017 Discharge Disposition: Home Principal Diagnosis: RENAL COLIC Secondary Diagnoses/Problems: (1) Asthma Status: Chronic (2) Bronchitis Status: Resolved (3) Diabetes mellitus, type II Status: Chronic (4) GERD (gastroesophageal reflux disease) Status: Chronic (5) Hypertension Status: Chronic (6) Pneumonia Status: Resolved Procedures: CT ABD/PELVIS: 10 mm x 9 mm right ureteropelvic junction calculus which results in moderate right hydronephrosis with perinephric infiltration. Delayed right nephrogram due to the obstruction. S/P CYSTOSCOPY AND STENT PLACEMENT Consultations: UROLOGY Medication Reconciliation New Medications: Ciprofloxacin Hcl (Cipro) 500 Mg Tab 500 MG PO BID for 3 Days, #6 TAB Continued Medications: Albuterol Hfa (Ventolin Hfa) 200 Puffs/85183 Mcg Aers 2 PUFFS INH QID PRN for Shortness of Breath, #1 INHALER Aspirin (Aspirin Ec) 81 Mg Tab 81 MG PO DAILY Cholecalciferol (Vitamin D3) Unknown Strength Chw Unknown Dose PO DAILY Epinephrine (Epipen) 0.3 Mg/0.3 Ml Inj 0.3 MG IM UD PRN for Allergic Reaction, INJ Estradiol (Estradiol) 0.5 Mg Tab 0.5 MG PO DAILY Hydrochlorothiazide (Hctz) 25 Mg Tab 25 MG PO DAILY, TAB Lisinopril (Lisinopril) 10 Mg Tab 10 MG PO DAILY Multiple Vitamins W/ Minerals (Centrum Silver 50+Women) 1 Tab Tab 1 TAB PO DAILY Omeprazole (Prilosec) 40 Mg Cap 40 MG PO DAILY, CAP Potassium (Potassium) Unknown Strength Tab Unknown Dose PO DAILY Admission Information HPI (per Admitting provider): This is a 61yo F with a PMH of HTN, GERD, asthma and h/o gastric bypass who presents with worsening abdominal pain x 2 days. Patient was in normal state of health on Monday until she experienced sudden sharp RLQ pain with associated subjective fever and chills. Pain continued the next day but did not worsen until last night around midnight, when it became a constant, 10/10 pinching pain in her RLQ with radiation to her right flank. Associated with nausea and dark urine with a strong odor. Denies history of kidney stones. Is urinating a usual amount. Was brought to ED via EMS for further evaluation. Denies fever, chills, lightheadedness, chest pain, SOB, vomiting, dysuria, hematuria, diarrhea or constipation. Was given IV tylenol and dilaudid in ED with complete pain relief. Physical Exam (per Admitting): General Appearance: WD/WN, no apparent distress, + pertinent finding ( resting comfortably ) Head: normocephalic, atraumatic Eyes: normal inspection, PERRL, sclerae normal ENT: normal ENT inspection, hearing grossly normal, pharynx normal (dry mucous membranes) Neck: supple, thyroid normal, trachea midline Respiratory/Chest: chest non-tender, lungs clear, normal breath sounds, no respiratory distress, no accessory muscle use Cardiovascular: no murmur, normal peripheral pulses, + bradycardia (chronic ) Abdomen/GI: non tender, soft, no organomegaly Back: + pertinent finding (No CVA tenderness) Extremities/Musculoskelatal: normal inspection, no calf tenderness, no pedal edema Neurologic/Psych: no motor/sensory deficits, alert, normal mood/affect, oriented x 3 Skin: normal color, warm/dry Hospital Course This is a 61yo F with a PMH of HTN, GERD, asthma and h/o gastric bypass who presents with worsening abdominal pain x 2 days and was found to have a R Ureteropelvic junction stone with moderate hydronephrosis. R Ureteropelvic junction stone with moderate hydronephrosis: CT abd/pelvis with 10 mm x 9 mm right ureteropelvic junction calculus, moderate right hydronephrosis with perinephric infiltration s/p cystoscopy and stent placement plan for ESWL on Monday by urology urine cx gm negative bacilli- discharged on cipro HTN: stable d/c on home meds. GERD: On omeprazole H/o gastric bypass: f/u with pcp for multivitamins Asthma: Stable on home inhalers discharged home Total time spent on discharge = 35MINUTES This includes examination of the patient, discharge planning, medication reconciliation, and communication with other providers. Discharge Instructions Discharge Instructions Date of Service May 03, 2017. Admission Reason for Admission: Ureteropelvic Junction Calculus Discharge Discharge Diagnosis / Problem: RT UPJ stone s/p stent Discharge Goals Goal(s): Decrease discomfort, Improve function Activity Recommendations Activity Limitations: resume your previous activity . Instructions / Follow-Up Instructions / Follow-Up FOLLOWUP WITH FAMILY DOCTOR IN ONE WEEK FOLLOWUP WITH UROLOGY SCHEDULED ON MONDAY FOR LITHOTRIPSY Current Hospital Diet Patient's current hospital diet: Regular Diet Discharge Diet Recommended Diet: Regular Diet Procedures Procedures Performed: cystoscopy; right ureteral stent ([id number]) Pending Studies Studies pending at discharge: no Medical Emergencies . Who to Call and When: Medical Emergencies: If at any time you feel your situation is an emergency, please call 911 immediately. . Non-Emergent Contact Non-Emergency issues call your: Primary Care Provider . . "Provider Documentation" section prepared by Chandler Medina. . VTE Core Measure Inpt VTE Proph given/why not?: SCD's
[2017-05-05] MEDS ORDERED: SULF-302 PO (08:35)
[2017-05-05] MEDS ORDERED: HYDR-5688 PO (10:45)
== END 2017-05-03 14:45 | disposition home or self-care (01) | DRG 690 ==
LOC: EDBD 04:34 → C.EDA 04:35 → C.MSN 09:10 → ENRESERV 09:24
PROVIDERS: ADMIT Internal Medicine; ATTEND Internal Medicine
PROC: BT14ZZZ Fluoroscopy of Kidneys, Ureters and Bladder (ICD-10-PCS; principal; 2017-05-02 14:00)
PROC: 0T768DZ Dilation of Right Ureter with Intraluminal Device, Via Natural or Artificial Opening Endoscopic (ICD-10-PCS; principal; 2017-05-02 14:00)
DX: N13.6 Pyonephrosis (principal); N30.81 Other cystitis with hematuria; J45.909 Unspecified asthma, uncomplicated; K21.9 Gastro-esophageal reflux disease without esophagitis; E11.9 Type 2 diabetes mellitus without complications; M48.02 Spinal stenosis, cervical region; Z79.82 Long term (current) use of aspirin; I10 Essential (primary) hypertension; Z90.710 Acquired absence of both cervix and uterus; Z82.49 Family history of ischemic heart disease and other diseases of the circulatory system; Z96.653 Presence of artificial knee joint, bilateral; Z88.0 Allergy status to penicillin; Z87.891 Personal history of nicotine dependence; Z98.84 Bariatric surgery status

== ENCOUNTER → 2017-05-04 | Outpatient (CLI) | payer OTHER ==
[~2017-05-04] MED LIST changes: +ASPI81TA28 PO; +CHOL1CHW10 PO; +CIPR-255 PO; +HYDR-5688 PO; +HYDR25TA4 PO; +LISI-461 PO; +MULT-1092 PO; +OMEP40CA41 PO; +POTA99TA PO; +SULF-302 PO; +VNTHFA/IN INH
--- NOTE | 2017-05-04 18:01 | DIAGNOSTIC IMAGING REPORT ---
[facility] CLINICAL HISTORY: 61 years-old Female presenting with N20.0 Nephrolithiasis. TECHNIQUE: Single supine view of the abdomen was obtained. COMPARISON: CT from 05/02/2017 and fluoroscopy performed the same day FINDINGS: Nonobstructive bowel gas pattern. Anastomotic suture lines noted in the epigastrium. No gross pneumoperitoneum. A right ureteral stent is in place. Ovoid 11 mm calculus at the right ureteropelvic junction, unchanged. No additional radiographically visible renal calculi. Multiple pelvic phleboliths noted. Osseous structures normal. IMPRESSION: 1. Right ureteral stent with unchanged position of the 11 mm calculus at the right ureteropelvic junction. Electronically signed by: Davin Young M.D. 05/04/2017 6:00 PM Dictated Date/Time: 05/04/2017 5:57 PM
== END | disposition home or self-care (01) ==
LOC: C.RAD 17:44
PROVIDERS: ATTEND Urology
DX: N20.0 Calculus of kidney (principal)

== ENCOUNTER → 2017-05-05 | Day surgery (SDC) | payer OTHER ==
[2017-05-04 07:16] VITALS: Ht 162.6 cm; Wt 86.4 kg
[~2017-05-05] VITALS: Ht 162.6 cm; Wt 86.4 kg
[~2017-05-05] MED LIST changes: +ACETAMINOPHEN 325 MG TAB PO PRN; -ALBUAER19 INH; +ATROPINE SULFATE 0.1 MG/ML 5ML SYR IV PRN; +CIPROFLOXACIN 400MG / D5W IV SCH; +DEXAMETHASONE SOD INJ 4 MG/ML VIAL ONE; +EpHEDrine SULFATE INJ 50 MG/ML AMP IV PRN; +FENTANYL CITRATE INJ 50 MCG/1 ML 2 ML VIAL IV PRN; +FENTANYL CITRATE INJ 50 MCG/1 ML 2 ML VIAL ONE; +HYDROCODONE/ACETAMOPHEN 5/325MG TAB PO PRN; +LACTATED RINGER'S 1000ML 1,000 ML IV SCH; +LIDOCAINE HCL 2% 2 ML VIAL (20MG/ML) ONE; +MIDAZOLAM HCL 1 MG/ML 2ML VIAL ONE; +ONDANSETRON INJ 2 MG/ML 2 ML VIAL IV PRN; +ONDANSETRON INJ 2 MG/ML 2 ML VIAL ONE; +PROPOFOL IV EMULSION 10 MG/ML 20 ML VIAL IV ONE; +SODIUM CHLORIDE 0.9% 1000ML 1,000 ML IV SCH; -TRAM-10 PO
--- NOTE | 2017-05-05 08:19 | History and Physical ---
History & Physical Date May 05, 2017. History of Present Illness The patient is a 61 year old female with complaints of right UPJ stone - s/p stent earlier this week after admission for acute renal colic - hx of gastric bypass - general health is good Past Medical/Surgical History Medical Problems: (1) Asthma (2) Bronchitis (3) Diabetes mellitus, type II (4) GERD (gastroesophageal reflux disease) (5) Hypertension (6) Pneumonia Surgical Problems: (1) H/O gastric bypass (2) S/P complete hysterectomy (3) S/P hysterectomy (4) Status post bilateral knee replacements Social History Problems: (1) Emphysema lung Additional History Hepatic Disease: No Endocrine Disorder: No Kidney Disease: Hypertension: No Heart Disease: No Bleeding Tendencies: No Infectious Diseases: No Allergies Coded Allergies: BEE STING (Verified Allergy, Severe, ANAPHYLAXIS, 05/05/17) HAS EPIPEN TO USE IF NEEDED Penicillins (Verified Allergy, Severe, THROAT SWELLS, 05/05/17) Morphine (Verified Allergy, Mild, PO ONLY (IV OKAY, PER PATIENT), 05/05/17) PER PT, THROAT SWELLS WITH PO MORPHINE, BUT SHE IS OKAY WITH IV MORPHINE Home Medications Scheduled Aspirin (Aspirin Ec), 81 MG PO QAM Cholecalciferol (Vitamin D3), 500 MG PO DAILY Ciprofloxacin Hcl (Cipro), 500 MG PO BID Estradiol (Estradiol), 0.5 MG PO QAM Hydrochlorothiazide (Hctz), 25 MG PO QAM Lisinopril (Lisinopril), 10 MG PO QAM Multiple Vitamins W/ Minerals (Centrum Silver 50+Women), 1 TAB PO DAILY Omeprazole (Prilosec), 40 MG PO QAM Potassium (Potassium), Unknown Dose PO DAILY Scheduled PRN Albuterol Hfa (Ventolin Hfa), 2 PUFFS INH QID PRN for Shortness of Breath Epinephrine (Epipen), 0.3 MG IM UD PRN for Allergic Reaction Physical Examination Skin: warm/dry Eyes: normal inspection ENT: normal ENT inspection Head: normocephalic Neck: supple Respiratory/Chest: lungs clear, normal breath sounds, no respiratory distress Cardiovascular: no edema Abdomen / GI: normal bowel sounds Back: normal inspection Extremities: normal inspection Genitourinary - Female: external genitalia normal Neurologic/Psych: no motor/sensory deficits Plan of Treatment R ESWL
--- NOTE | 2017-05-05 09:46 | Discharge Instructions-SurgCtr ---
Discharge Instructions Date of Service May 05, 2017. Visit Reason for Visit: Stones Discharge Discharge Diagnosis / Problem: stones Discharge Goals Goal(s): Decrease discomfort, Improve function, Increase independence, Improve disease control Activity Recommendations Activity Limitations: resume your previous activity Lifting Limitations: none Exercise/Sports Limitations: none May Resume Sexual Activity: when tolerated Shower/Bathe: no limitations Driving or Machine Use: resume 1 day after discharge Anesthesia . Post Anesthesia Instructions: If you have had General Anesthesia or IV Sedation: * Do not drive today. * Resume driving when surgeon permits. * Do not make important decisions or sign legal documents today. * Call surgeon for: 1. Temperature elevations greater than 101 degrees F. 2. Uncontrollable pain. 3. Excessive bleeding. 4. Persistent nausea and vomiting. 5. Medication intolerance (nausea, vomiting or rash). * For nausea and vomiting use only clear liquids such as: tea, soda, bouillon until nausea subsides, then gradually increase diet as tolerated. * If you have any concerns or questions, call your surgeon's office. If physician is unavailable and it is an emergency, call 911 or go to the nearest emergency room. . Diet Recommendations Home Diet: no limitations, resume previous diet Pending Studies Studies pending at discharge: no Medical Emergencies . Who to Call and When: Medical Emergencies: If at any time you feel your situation is an emergency, please call 911 immediately. . Non-Emergent Contact Non-Emergency issues call your: Urologist Call Non-Emergent contact if: you have a fever, temperature is above 101.5, your pain is not controlled, your pain is worsening . . "Provider Documentation" section prepared by Kevin Mahmood. .
--- NOTE | 2017-05-05 10:10 | [facility] Operative Report ---
Operative Report Operative Date May 05, 2017. Pre-Operative Diagnosis Right ureteral stone Post-Operative Diagnosis Same as pre-op Procedure(s) Performed Right Ureteral Extracorporeal Shock Wave Lithotripsy Surgeon Building Supervisor Surgeon(s) None Estimated Blood Loss Zero Findings right UPJ stone Specimens None Drains none Anesthesia gen Complication(s) None Disposition Recovery Room / PACU (stable) Indications symptomatic R upj stone Description of Procedure The patient was identified in the preoperative holding area, appropriate informed consent was reviewed and completed and the patient was transported to the operating suite. Upon arrival appropriate preoperative antibiotics were administered and general anesthesia induced. The patient was placed in supine position and the stone was localized under fluoroscopy. A total of 2500 shocks were delivered to the stone. There appeared to be good fragmentation of the stone. Details of this procedure can be found on the [facility] information sheet. At the conclusion of the case the patient was extubated and taken to the PACU in stable condition. There were no complications. I attest to the content of the Intraoperative Record and any orders documented therein. Any exceptions are noted below.
[2017-05-05 10:56] VITALS: TEMP 37.1
--- NOTE | 2017-05-05 11:16 | Anesthesia Progress Nt - [facility] ---
Anesthesia Post Op Note Date & Time May 05, 2017 at 11:16 Vital Signs Pain Intensity: 6.0 Vital Signs Past 12 Hours Date Time Temp Pulse Resp B/P (MAP) Pulse Ox O2 Delivery O2 Flow Rate FiO2 05/05/17 10:56 37.1 44 18 112/64 (80) 98 Room Air 05/05/17 10:41 107/61 05/05/17 10:39 44 14 05/05/17 10:39 44 14 97 05/05/17 10:39 36.9 42 12 114/60 98 Room Air 05/05/17 10:36 114/60 05/05/17 10:34 41 11 98 05/05/17 10:34 42 11 05/05/17 10:31 112/74 05/05/17 10:29 45 14 99 05/05/17 10:29 45 14 05/05/17 10:28 44 14 05/05/17 10:28 43 14 99 05/05/17 10:28 43 14 99 05/05/17 10:28 44 14 05/05/17 10:26 131/73 05/05/17 10:26 131/73 05/05/17 10:23 47 13 05/05/17 10:23 45 13 98 05/05/17 10:23 45 13 98 05/05/17 10:23 47 13 05/05/17 10:21 116/70 05/05/17 10:21 116/70 05/05/17 10:18 46 19 99 05/05/17 10:18 47 19 05/05/17 10:18 46 19 99 05/05/17 10:18 47 19 05/05/17 10:16 119/63 05/05/17 10:16 119/63 05/05/17 10:14 106/70 05/05/17 10:14 106/70 05/05/17 10:13 51 99 05/05/17 10:13 51 05/05/17 10:13 51 05/05/17 10:13 51 99 05/05/17 10:13 37.2 50 16 106/70 98 Diffusion Mask 6 05/05/17 07:52 36.5 47 16 138/83 (101) 97 Room Air Notes Mental Status: alert / awake / arousable, participated in evaluation Pt Amnestic to Procedure: Yes Nausea / Vomiting: adequately controlled Pain: adequately controlled Airway Patency, RR, SpO2: stable & adequate BP & HR: stable & adequate Hydration State: stable & adequate Anesthetic Complications: no major complications apparent
[2017-05-05 11:30] VITALS: BP 97/65; PULSE 43; O2SAT 100
== END | disposition home or self-care (01) ==
LOC: X.SURG 07:35
PROVIDERS: ATTEND Urology
DX: N20.1 Calculus of ureter (principal); J45.909 Unspecified asthma, uncomplicated; E11.9 Type 2 diabetes mellitus without complications; K21.9 Gastro-esophageal reflux disease without esophagitis; I10 Essential (primary) hypertension; Z87.01 Personal history of pneumonia (recurrent); Z90.710 Acquired absence of both cervix and uterus; Z96.653 Presence of artificial knee joint, bilateral; Z79.82 Long term (current) use of aspirin; E66.9 Obesity, unspecified; E78.5 Hyperlipidemia, unspecified; Z87.891 Personal history of nicotine dependence

== ENCOUNTER → 2017-05-15 | Outpatient (CLI) | payer OTHER ==
[~2017-05-15] MED LIST changes: -ACETAMINOPHEN 325 MG TAB PO PRN; -ATROPINE SULFATE 0.1 MG/ML 5ML SYR IV PRN; -CIPROFLOXACIN 400MG / D5W IV SCH; -DEXAMETHASONE SOD INJ 4 MG/ML VIAL ONE; -EpHEDrine SULFATE INJ 50 MG/ML AMP IV PRN; -FENTANYL CITRATE INJ 50 MCG/1 ML 2 ML VIAL IV PRN; -FENTANYL CITRATE INJ 50 MCG/1 ML 2 ML VIAL ONE; -HYDROCODONE/ACETAMOPHEN 5/325MG TAB PO PRN; -LACTATED RINGER'S 1000ML 1,000 ML IV SCH; -LIDOCAINE HCL 2% 2 ML VIAL (20MG/ML) ONE; -MIDAZOLAM HCL 1 MG/ML 2ML VIAL ONE; -ONDANSETRON INJ 2 MG/ML 2 ML VIAL IV PRN; -ONDANSETRON INJ 2 MG/ML 2 ML VIAL ONE; -PROPOFOL IV EMULSION 10 MG/ML 20 ML VIAL IV ONE; -SODIUM CHLORIDE 0.9% 1000ML 1,000 ML IV SCH
--- NOTE | 2017-05-15 07:50 | DIAGNOSTIC IMAGING REPORT ---
KUB HISTORY: Recent right-sided lithotripsy with stent placement. N20.0 Nephrolithiasis COMPARISON: [facility] 05/04/2017 FINDINGS: The bowel gas pattern is non-obstructive. There is no organomegaly. Right-sided ureteral stent is in place. The previously noted 11 mm calculus near the proximal portion of the stent is no longer present. There is a 2 mm calculus within the region of the interpolar right kidney with multiple additional calculi projecting over the region of the superior and inferior poles of the right kidney measuring up to 3 mm. Multiple small stone fragments are seen layering along the distal portion of the right ureteral stent measuring up to approximately 4 mm. No definite left-sided renal calculi. No pneumoperitoneum or pneumatosis. No fracture. Surgical suture material the left upper abdomen. IMPRESSION: 1. Unchanged positioning of right ureteral stent. 2. Previously noted 11 mm calculus within the region of the proximal right ureter is no longer present. There are multiple small calculi along the course of the distal right ureter as above status post lithotripsy. 3. Right-sided nephrolithiasis. Electronically signed by: Watson Lei M.D. 05/15/2017 7:49 AM Dictated Date/Time: 05/15/2017 7:46 AM
== END | disposition home or self-care (01) ==
LOC: C.RAD 07:20
PROVIDERS: ATTEND Urology
DX: N20.0 Calculus of kidney (principal)